=== PATIENT | female | born 1940 | race Two or more races ===

== ENCOUNTER → 2022-01-06 | Outpatient (CLI) | payer SELFPAY ==
--- NOTE | 2022-01-06 12:45 | MR ---
EXAMINATION TYPE: MR lumbar spine wo con DATE OF EXAM: 01/06/2022 COMPARISON: None HISTORY: SCIATICA, RIGHT SIDE TECHNIQUE: Multiplanar, multisequence images of the lumbar spine were acquired without IV contrast. FINDINGS: Lumbar segments are intact. No paraspinal masses are identified. Conus medullaris has a normal appe arance. Multilevel disc desiccation is present. Normal alignment. L1-L2: No herniation, protrusion or disc bulging. No canal stenosis is present. Foramina are patent bilaterally. L2-L3: No herniation, protrusion or disc bulging. No canal stenosis is present. Foramina are patent bilaterally. L3-L4: Broad-based disc bulge without significant central canal stenosis. There is facet arthropathy and ligament flavum buckling contributing to mild bilateral neural foraminal stenosis. L4-L5: Broad-based disc bulge with right subarticular zone disc herniation and caudal extrusion appro ximately 5 mm. There is moderate spinal canal stenosis at this level with effacement of the exiting r ight L4 and traversing right L5 nerve roots. Moderate bilateral neural foraminal stenosis. Facet arth ropathy ligament flavum buckling. L5-S1: No herniation, protrusion or disc bulging. No canal stenosis is present. Facet hypertrophy id entified. Mild bilateral neural foraminal stenosis. Other: Likely 1.5 cm T2 hyperintense left renal cyst. IMPRESSION: 1. L4-L5 right subarticular zone disc herniation and caudal extrusion superimposed upon broad-based disc bulge resulting in moderate spinal canal stenosis. 2. Multilevel degenerative disc disease as described above.
== END | disposition home or self-care (01) ==
LOC: RADMRIMAIN 10:12
DX: M51.26 Other intervertebral disc displacement, lumbar region (principal); M51.36 Other intervertebral disc degeneration, lumbar region; M48.061 Spinal stenosis, lumbar region without neurogenic claudication
CPT/HCPCS: 72148